=== PATIENT | male | born 1960 | race Caucasian/White ===

== ENCOUNTER 2020-11-21 15:17 | Inpatient (IN) | payer MEDICAID, SELFPAY ==
[~2020-11-21] VITALS: Ht 177.8 cm; Wt 92.1 kg
[2020-11-21 15:20] VITALS: BP_SYST 125
[2020-11-21 16:32] LABS: BASOPHILS % (AUTO) 0.5 % (0.0-2.0); EOSINOPHILS # (AUTO) 0.1 K/uL (0.0-0.4); EOSINOPHILS % (AUTO) 1.5 % (0.0-4.0); HEMATOCRIT 25.2 % (36-54); HEMOGLOBIN 8.5 g/dL (14.0-18.0); LYMPHOCYTES # (AUTO) 1.5 K/uL (1.0-5.5); LYMPHOCYTES % (AUTO) 18.9 % (20.5-51.5); MEAN CORPUSCULAR HEMOGLOBIN 30 pg (27-31); MEAN CORPUSCULAR HGB CONC 34 % (32-36); MEAN CORPUSCULAR VOLUME 88 fL (79.0-98.0); MONOCYTES # (AUTO) 0.4 K/uL (0.0-1.0); MONOCYTES % (AUTO) 4.6 % (1.7-9.3); NEUTROPHILS % (AUTO) 74.5 % (40.0-70.0); PLATELET COUNT (AUTO) 241 K/uL (130-430); RED BLOOD CELL COUNT(AUTO) 2.87 MIL/uL (4.2-6.2); RED CELL DISTRIBUTION WIDTH 15.3 % (9.0-15.0)
[2020-11-21 16:46] LABS: INR 0.9 (0.80-1.20); PROTHROMBIN TIME 10.1 SECS (9.5-12.5)
[2020-11-21 16:48] LABS: CALCIUM 8.5 mg/dL (8.4-11.0); CREATININE 1.82 mg/dL (0.55-1.30); POTASSIUM 3.5 mmol/L (3.5-5.1)
[2020-11-21 16:54] LABS: ALBUMIN 2.6 g/dL (3.4-4.8); TOTAL BILIRUBIN 0.2 mg/dL (0.0-1.0)
[2020-11-21] MEDS ORDERED: LORazepam 1 MG TABLET PO ONE (20:00)
[2020-11-21] MEDS ORDERED: IOHEXOL 350 mgI/mL, 150 ML INFUS..BTL IV ONE (20:02)
[2020-11-21] MEDS ORDERED: PIPERACILLIN/TAZOBACTAM 2.25 GM in NS 50 ML IV ONE (21:45)
[2020-11-21] MEDS ORDERED: VANCOMYCIN HCL 1,000 MG in NS 250 ML IV ONE (21:45)
[2020-11-21] MEDS ORDERED: VANCOMYCIN HCL 1000 MG/VIAL IV ONE (22:00)
[2020-11-21] MEDS ORDERED: PIPERACILLIN/TAZOBACTAM 2.25 GM VIAL IV ONE (22:00)
[2020-11-21] MEDS ORDERED: HYDR-3698 PO (23:26)
[2020-11-21] MEDS ORDERED: BUDE0.5A INH (23:26)
[2020-11-21] MEDS ORDERED: MIRT-114 PO (23:26)
[2020-11-21] MEDS ORDERED: INSU100V9 SQ (23:26)
[2020-11-21] MEDS ORDERED: CILO100T PO (23:26)
[2020-11-21] MEDS ORDERED: TAMS-11 PO (23:26)
[2020-11-21] MEDS ORDERED: LACT1CAP61 PO (23:26)
[2020-11-21] MEDS ORDERED: LIP20 PO (23:26)
[2020-11-21] MEDS ORDERED: NITSL SL (23:26)
[2020-11-21] MEDS ORDERED: TRAM50TA2 PO (23:26)
[2020-11-21] MEDS ORDERED: METO25TA6 PO (23:26)
[2020-11-21] MEDS ORDERED: LEVA15HF5 INH (23:26)
[2020-11-21] MEDS ORDERED: ZOLP5TAB2 PO (23:26)
[2020-11-21] MEDS ORDERED: PRO40 PO (23:26)
[2020-11-22 00:18] VITALS: BP_SYST 134
[2020-11-22 01:14] VITALS: BP_SYST 135
[2020-11-22] MEDS: traMADol HCL HCL 50 MG TABLET (ULTRAM) PO PRN ×2 (03:21→12:12)
[2020-11-22] MEDS ORDERED: PIPERACILLIN/TAZOBACTAM 2.25 GM VIAL IV ONE (04:03)
[2020-11-22] MEDS: PIPERACILLIN/TAZOBACTAM 2.25 GM in NS 50 ML IV SCH ×5 (05:57→16:45)
[2020-11-22 08:39] VITALS: BP_SYST 119
[2020-11-22] MEDS ORDERED: CILOSTAZOL 50 MG TABLET (PLETAL) PO ONE (11:30)
[2020-11-22] MEDS ORDERED: METOPROLOL TARTRATE 25 MG TABLET PO ONE (11:30)
[2020-11-22] MEDS ORDERED: TAMSULOSIN HCL 0.4 MG CAP PO ONE (11:30)
[2020-11-22] MEDS ORDERED: LACTOBACILLUS ACIDOPHILUS PO ONE (11:30)
[2020-11-22] MEDS ORDERED: traMADol HCL HCL 50 MG TABLET (ULTRAM) PO PRN (11:30)
[2020-11-22] MEDS ORDERED: BUDESONIDE 0.5 MG/2 ML AMPUL.NEB INH ONE (11:30)
[2020-11-22] MEDS ORDERED: NITROGLYCERIN 0.4 MG TAB.SUBL SL PRN (11:30)
[2020-11-22] MEDS ORDERED: PANTOPRAZOLE SODIUM 40 MG TAB PO ONE (11:30)
[2020-11-22] MEDS ORDERED: LACTOBACILLUS RHAMNOSUS GG 1 CAP CAPSULE PO ONE (12:00)
[2020-11-22] MEDS: INSULIN REGULAR, HUMAN 100 UNITS/ML, 10 ML VIAL (humuLIN R) SUBCUT PRN ×3 (12:14→21:17)
[2020-11-22 16:09] VITALS: BP_SYST 133
[2020-11-22] MEDS ORDERED: HEPARIN SODIUM,PORCINE 5,000 UNITS/ML VIAL ONE (17:16)
[2020-11-22 20:20] VITALS: BP_SYST 138
[2020-11-22] MEDS: BUDESONIDE 0.5 MG/2 ML AMPUL.NEB INH SCH (20:57)
[2020-11-22] MEDS: ZOLPIDEM TARTRATE 5 MG TABLET PO PRN (21:11)
[2020-11-22] MEDS: ATORVASTATIN 20 MG TABLET PO SCH (21:12)
[2020-11-22] MEDS: MIRTAZAPINE 15 MG TABLET PO SCH (21:12)
[2020-11-22] MEDS: CILOSTAZOL 50 MG TABLET (PLETAL) PO SCH (21:12)
[2020-11-22] MEDS: METOPROLOL TARTRATE 25 MG TABLET PO SCH (21:14)
[2020-11-22] MEDS: INSULIN GLARGINE 100 UNITS/ML 10 ML VIAL SUBCUT SCH (21:16)
[2020-11-23] MEDS: PIPERACILLIN/TAZOBACTAM 2.25 GM in NS 50 ML IV SCH ×4 (00:48→17:01)
[2020-11-23 02:10] VITALS: BP_SYST 102
[2020-11-23] MEDS: BUDESONIDE 0.5 MG/2 ML AMPUL.NEB INH SCH ×2 (07:42→19:10)
[2020-11-23 07:52] LABS: BASOPHILS % (AUTO) 0.4 % (0.0-2.0); EOSINOPHILS # (AUTO) 0.3 K/uL (0.0-0.4); HEMATOCRIT 27.5 % (36-54); LYMPHOCYTES % (AUTO) 35.1 % (20.5-51.5); MEAN CORPUSCULAR HEMOGLOBIN 29 pg (27-31); MEAN CORPUSCULAR HGB CONC 33 % (32-36); MEAN CORPUSCULAR VOLUME 89 fL (79.0-98.0); MONOCYTES # (AUTO) 0.5 K/uL (0.0-1.0); MONOCYTES % (AUTO) 5.6 % (1.7-9.3); NEUTROPHILS # (AUTO) 4.8 K/uL (1.8-7.7); NEUTROPHILS % (AUTO) 55.9 % (40.0-70.0); PLATELET COUNT (AUTO) 202 K/uL (130-430); RED BLOOD CELL COUNT(AUTO) 3.08 MIL/uL (4.2-6.2); RED CELL DISTRIBUTION WIDTH 15.1 % (9.0-15.0); WHITE BLOOD COUNT (AUTO) 8.6 K/uL (4.8-10.8)
[2020-11-23 07:56] VITALS: BP_SYST 113
[2020-11-23 08:17] LABS: ALBUMIN 2.6 g/dL (3.4-4.8); CALCIUM 8.6 mg/dL (8.4-11.0); CREATININE 2.8 mg/dL (0.55-1.30); POTASSIUM 4.4 mmol/L (3.5-5.1); TOTAL BILIRUBIN 0.1 mg/dL (0.0-1.0)
[2020-11-23] MEDS: TAMSULOSIN HCL 0.4 MG CAP PO SCH (08:49)
[2020-11-23] MEDS: PANTOPRAZOLE SODIUM 40 MG TAB PO SCH (08:49)
[2020-11-23] MEDS: METOPROLOL TARTRATE 25 MG TABLET PO SCH ×2 (08:49→20:24)
[2020-11-23] MEDS: CILOSTAZOL 50 MG TABLET (PLETAL) PO SCH ×2 (08:49→20:23)
[2020-11-23] MEDS: LACTOBACILLUS RHAMNOSUS GG 1 CAP CAPSULE PO SCH (08:50)
[2020-11-23] MEDS: INSULIN REGULAR, HUMAN 100 UNITS/ML, 10 ML VIAL (humuLIN R) SUBCUT PRN ×3 (11:31→20:23)
[2020-11-23 12:00] VITALS: BP_SYST 122
[2020-11-23 16:00] VITALS: BP_SYST 117
[2020-11-23 20:15] VITALS: BP_SYST 117
[2020-11-23] MEDS: INSULIN GLARGINE 100 UNITS/ML 10 ML VIAL SUBCUT SCH (20:22)
[2020-11-23] MEDS: MIRTAZAPINE 15 MG TABLET PO SCH (20:23)
[2020-11-23] MEDS: ATORVASTATIN 20 MG TABLET PO SCH (20:23)
[2020-11-23] MEDS: traMADol HCL HCL 50 MG TABLET (ULTRAM) PO PRN (20:24)
[2020-11-23] MEDS: ZOLPIDEM TARTRATE 5 MG TABLET PO PRN (21:33)
[2020-11-24] MEDS: PIPERACILLIN/TAZOBACTAM 2.25 GM in NS 50 ML IV SCH ×4 (00:56→17:15)
[2020-11-24 01:08] VITALS: BP_SYST 139
[2020-11-24 08:00] VITALS: BP_SYST 136
[2020-11-24] MEDS: BUDESONIDE 0.5 MG/2 ML AMPUL.NEB INH SCH ×2 (08:10→19:00)
[2020-11-24 08:29] LABS: BASOPHILS % (AUTO) 0.5 % (0.0-2.0); EOSINOPHILS # (AUTO) 0.3 K/uL (0.0-0.4); HEMATOCRIT 27.2 % (36-54); HEMOGLOBIN 8.8 g/dL (14.0-18.0); LYMPHOCYTES % (AUTO) 33.8 % (20.5-51.5); MEAN CORPUSCULAR HEMOGLOBIN 29 pg (27-31); MEAN CORPUSCULAR HGB CONC 32 % (32-36); MEAN CORPUSCULAR VOLUME 89 fL (79.0-98.0); MONOCYTES # (AUTO) 0.5 K/uL (0.0-1.0); MONOCYTES % (AUTO) 5.1 % (1.7-9.3); NEUTROPHILS # (AUTO) 5.2 K/uL (1.8-7.7); NEUTROPHILS % (AUTO) 57.6 % (40.0-70.0); PLATELET COUNT (AUTO) 221 K/uL (130-430); RED BLOOD CELL COUNT(AUTO) 3.05 MIL/uL (4.2-6.2); RED CELL DISTRIBUTION WIDTH 14.9 % (9.0-15.0)
[2020-11-24 08:45] LABS: CALCIUM 8.5 mg/dL (8.4-11.0); CREATININE 4.2 mg/dL (0.55-1.30); POTASSIUM 4.4 mmol/L (3.5-5.1)
[2020-11-24] MEDS: LACTOBACILLUS RHAMNOSUS GG 1 CAP CAPSULE PO SCH (09:01)
[2020-11-24] MEDS: TAMSULOSIN HCL 0.4 MG CAP PO SCH (09:02)
[2020-11-24] MEDS: CILOSTAZOL 50 MG TABLET (PLETAL) PO SCH ×2 (09:03→20:52)
[2020-11-24] MEDS: METOPROLOL TARTRATE 25 MG TABLET PO SCH ×2 (09:04→20:52)
[2020-11-24] MEDS: PANTOPRAZOLE SODIUM 40 MG TAB PO SCH (09:04)
[2020-11-24] MEDS: INSULIN REGULAR, HUMAN 100 UNITS/ML, 10 ML VIAL (humuLIN R) SUBCUT PRN ×3 (11:58→20:58)
[2020-11-24 12:20] VITALS: BP_SYST 127
[2020-11-24] MEDS: LevALBUTEROL HCL 1.25 MG/0.5 ML *CONC.* VIAL.NEB (XOPENEX CONC.) INH PRN (14:39)
[2020-11-24 16:09] VITALS: BP_SYST 122
[2020-11-24] MEDS: LIPASE/PROTEASE/AMYLASE 1 CAP PO SCH (17:14)
[2020-11-24 20:00] VITALS: BP_SYST 142
[2020-11-24] MEDS: MIRTAZAPINE 15 MG TABLET PO SCH (20:52)
[2020-11-24] MEDS: ATORVASTATIN 20 MG TABLET PO SCH (20:52)
[2020-11-24] MEDS: INSULIN GLARGINE 100 UNITS/ML 10 ML VIAL SUBCUT SCH (20:55)
[2020-11-24] MEDS ORDERED: cefTRIAXone 1 GM VIAL ONE (21:40)
[2020-11-24] MEDS ORDERED: VANCOMYCIN HCL Non-Formulary 125 MG CAPSULE PO SCH (22:00)
[2020-11-24] MEDS: VANCOMYCIN HCL ORAL SOLUTION 250 MG/5 ML, 80 ML PO SCH (22:00)
[2020-11-24] MEDS: cefTRIAXone 1 GM in D5W 50 ML IV SCH (22:26)
[2020-11-24] MEDS ORDERED: HEPARIN SODIUM,PORCINE 5,000 UNITS/ML VIAL IVP ONE (23:00)
[2020-11-24] MEDS: traMADol HCL HCL 50 MG TABLET (ULTRAM) PO PRN (23:20)
[2020-11-25] VITALS: BP_SYST 133
[2020-11-25] MEDS: VANCOMYCIN HCL ORAL SOLUTION 250 MG/5 ML, 80 ML PO SCH ×4 (06:00→23:40)
[2020-11-25] MEDS: traMADol HCL HCL 50 MG TABLET (ULTRAM) PO PRN (06:33)
[2020-11-25] MEDS: INSULIN REGULAR, HUMAN 100 UNITS/ML, 10 ML VIAL (humuLIN R) SUBCUT PRN ×3 (06:33→17:25)
[2020-11-25] MEDS: BUDESONIDE 0.5 MG/2 ML AMPUL.NEB INH SCH ×2 (07:45→19:00)
[2020-11-25 08:00] VITALS: BP_SYST 133; BP_SYST 153
[2020-11-25] MEDS: TAMSULOSIN HCL 0.4 MG CAP PO SCH (09:11)
[2020-11-25] MEDS: LACTOBACILLUS RHAMNOSUS GG 1 CAP CAPSULE PO SCH (09:11)
[2020-11-25] MEDS: PANTOPRAZOLE SODIUM 40 MG TAB PO SCH (09:11)
[2020-11-25] MEDS: CILOSTAZOL 50 MG TABLET (PLETAL) PO SCH ×2 (09:11→21:05)
[2020-11-25] MEDS: LIPASE/PROTEASE/AMYLASE 1 CAP PO SCH ×3 (09:11→17:30)
[2020-11-25] MEDS: METOPROLOL TARTRATE 25 MG TABLET PO SCH ×2 (09:16→21:05)
[2020-11-25 11:31] VITALS: BP_SYST 116
[2020-11-25] MEDS ORDERED: FAMOTIDINE 20 MG TABLET PO ONE (12:15)
[2020-11-25 15:30] VITALS: BP_SYST 126
[2020-11-25] MEDS ORDERED: EPOETIN ALFA 4,000 UNITS/ML VIAL SUBCUT SCH (17:00)
[2020-11-25] MEDS: cefTRIAXone 1 GM in D5W 50 ML IV SCH (18:59)
[2020-11-25] MEDS: INSULIN GLARGINE 100 UNITS/ML 10 ML VIAL SUBCUT SCH (20:57)
[2020-11-25] MEDS: ATORVASTATIN 20 MG TABLET PO SCH (21:05)
[2020-11-25] MEDS: MIRTAZAPINE 15 MG TABLET PO SCH (21:05)
[2020-11-26 01:03] VITALS: BP_SYST 118
[2020-11-26] MEDS: traMADol HCL HCL 50 MG TABLET (ULTRAM) PO PRN ×3 (01:09→23:06)
[2020-11-26] MEDS: INSULIN REGULAR, HUMAN 100 UNITS/ML, 10 ML VIAL (humuLIN R) SUBCUT PRN ×4 (01:16→21:30)
[2020-11-26] MEDS: VANCOMYCIN HCL ORAL SOLUTION 250 MG/5 ML, 80 ML PO SCH ×3 (05:18→23:07)
[2020-11-26] MEDS: BUDESONIDE 0.5 MG/2 ML AMPUL.NEB INH SCH ×2 (07:54→19:57)
[2020-11-26 08:00] VITALS: BP_SYST 120
[2020-11-26] MEDS: LIPASE/PROTEASE/AMYLASE 1 CAP PO SCH ×3 (08:55→17:43)
[2020-11-26] MEDS: FAMOTIDINE 20 MG TABLET PO SCH (08:55)
[2020-11-26] MEDS: LACTOBACILLUS RHAMNOSUS GG 1 CAP CAPSULE PO SCH (08:56)
[2020-11-26] MEDS: CILOSTAZOL 50 MG TABLET (PLETAL) PO SCH ×2 (08:56→21:17)
[2020-11-26] MEDS: PANTOPRAZOLE SODIUM 40 MG TAB PO SCH (08:56)
[2020-11-26] MEDS: TAMSULOSIN HCL 0.4 MG CAP PO SCH (08:56)
[2020-11-26] MEDS: METOPROLOL TARTRATE 25 MG TABLET PO SCH ×2 (08:58→21:17)
[2020-11-26 11:34] VITALS: BP_SYST 117
[2020-11-26 15:40] VITALS: BP_SYST 117
[2020-11-26] MEDS ORDERED: HEPARIN SODIUM,PORCINE 5,000 UNITS/ML VIAL MC PRN (16:15)
[2020-11-26] MEDS ORDERED: EPOETIN ALFA 10,000 UNITS/ML VIAL SUBCUT SCH (17:00)
[2020-11-26] MEDS: EPOETIN ALFA 10,000 UNITS/ML VIAL SUBCUT SCH (17:43)
[2020-11-26] MEDS: cefTRIAXone 1 GM in D5W 50 ML IV SCH (18:10)
[2020-11-26] MEDS: ATORVASTATIN 20 MG TABLET PO SCH (21:17)
[2020-11-26] MEDS: MIRTAZAPINE 15 MG TABLET PO SCH (21:17)
[2020-11-26] MEDS: INSULIN GLARGINE 100 UNITS/ML 10 ML VIAL SUBCUT SCH (21:28)
[2020-11-27] VITALS: BP_SYST 117
[2020-11-27] MEDS: traMADol HCL HCL 50 MG TABLET (ULTRAM) PO PRN ×2 (03:10→17:29)
[2020-11-27] MEDS: VANCOMYCIN HCL ORAL SOLUTION 250 MG/5 ML, 80 ML PO SCH ×3 (05:15→22:01)
[2020-11-27 06:48] LABS: BASOPHILS % (AUTO) 0.6 % (0.0-2.0); EOSINOPHILS # (AUTO) 0.3 K/uL (0.0-0.4); EOSINOPHILS % (AUTO) 3.4 % (0.0-4.0); HEMATOCRIT 28.3 % (36-54); HEMOGLOBIN 9.4 g/dL (14.0-18.0); LYMPHOCYTES % (AUTO) 36.2 % (20.5-51.5); MEAN CORPUSCULAR HEMOGLOBIN 29 pg (27-31); MEAN CORPUSCULAR HGB CONC 33 % (32-36); MEAN CORPUSCULAR VOLUME 88 fL (79.0-98.0); MONOCYTES # (AUTO) 0.5 K/uL (0.0-1.0); MONOCYTES % (AUTO) 5.5 % (1.7-9.3); NEUTROPHILS # (AUTO) 4.6 K/uL (1.8-7.7); NEUTROPHILS % (AUTO) 54.3 % (40.0-70.0); PLATELET COUNT (AUTO) 210 K/uL (130-430); RED BLOOD CELL COUNT(AUTO) 3.24 MIL/uL (4.2-6.2); RED CELL DISTRIBUTION WIDTH 14.9 % (9.0-15.0); WHITE BLOOD COUNT (AUTO) 8.4 K/uL (4.8-10.8)
[2020-11-27 07:15] LABS: ALBUMIN 2.7 g/dL (3.4-4.8); CALCIUM 8.5 mg/dL (8.4-11.0); CREATININE 3.23 mg/dL (0.55-1.30); PHOSPHORUS 4.6 mg/dL (2.7-4.5); POTASSIUM 4.7 mmol/L (3.5-5.1); TOTAL BILIRUBIN 0.1 mg/dL (0.0-1.0)
[2020-11-27 08:05] LABS: TOTAL IRON BIND. CAPACITY 211 ug/dL (250-450)
[2020-11-27] MEDS: BUDESONIDE 0.5 MG/2 ML AMPUL.NEB INH SCH ×2 (08:18→23:43)
[2020-11-27 09:09] VITALS: BP_SYST 126
[2020-11-27] MEDS: LACTOBACILLUS RHAMNOSUS GG 1 CAP CAPSULE PO SCH (09:12)
[2020-11-27] MEDS: PANTOPRAZOLE SODIUM 40 MG TAB PO SCH (09:12)
[2020-11-27] MEDS: TAMSULOSIN HCL 0.4 MG CAP PO SCH (09:13)
[2020-11-27] MEDS: METOPROLOL TARTRATE 25 MG TABLET PO SCH ×2 (09:13→22:02)
[2020-11-27] MEDS: FAMOTIDINE 20 MG TABLET PO SCH (09:14)
[2020-11-27] MEDS: CILOSTAZOL 50 MG TABLET (PLETAL) PO SCH ×2 (09:14→22:02)
[2020-11-27] MEDS: LIPASE/PROTEASE/AMYLASE 1 CAP PO SCH ×3 (09:15→17:38)
[2020-11-27 11:32] VITALS: BP_SYST 120
[2020-11-27] MEDS: INSULIN REGULAR, HUMAN 100 UNITS/ML, 10 ML VIAL (humuLIN R) SUBCUT PRN ×3 (12:00→23:37)
[2020-11-27 15:39] VITALS: BP_SYST 131
[2020-11-27] MEDS: LevALBUTEROL HCL 1.25 MG/0.5 ML *CONC.* VIAL.NEB (XOPENEX CONC.) INH PRN (17:01)
[2020-11-27] MEDS: cefTRIAXone 1 GM in D5W 50 ML IV SCH (17:39)
[2020-11-27 20:00] VITALS: BP_SYST 123
[2020-11-27] MEDS: ATORVASTATIN 20 MG TABLET PO SCH (22:02)
[2020-11-27] MEDS: MIRTAZAPINE 15 MG TABLET PO SCH (22:02)
[2020-11-27] MEDS: INSULIN GLARGINE 100 UNITS/ML 10 ML VIAL SUBCUT SCH (22:49)
[2020-11-28] VITALS (7 sets, daily range): BP systolic 122–130
[2020-11-28] MEDS: traMADol HCL HCL 50 MG TABLET (ULTRAM) PO PRN ×3 (01:23→21:39)
[2020-11-28] MEDS: VANCOMYCIN HCL ORAL SOLUTION 250 MG/5 ML, 80 ML PO SCH ×3 (05:34→21:51)
[2020-11-28 06:24] LABS: CALCIUM 8.5 mg/dL (8.4-11.0); CREATININE 4.21 mg/dL (0.55-1.30); POTASSIUM 5.1 mmol/L (3.5-5.1)
[2020-11-28 06:27] LABS: BASOPHILS # (AUTO) 0.1 K/uL (0.0-0.2); BASOPHILS % (AUTO) 0.6 % (0.0-2.0); EOSINOPHILS # (AUTO) 0.3 K/uL (0.0-0.4); EOSINOPHILS % (AUTO) 3.1 % (0.0-4.0); HEMATOCRIT 25.4 % (36-54); HEMOGLOBIN 8.4 g/dL (14.0-18.0); LYMPHOCYTES % (AUTO) 31.2 % (20.5-51.5); MEAN CORPUSCULAR HEMOGLOBIN 29 pg (27-31); MEAN CORPUSCULAR HGB CONC 33 % (32-36); MEAN CORPUSCULAR VOLUME 90 fL (79.0-98.0); MONOCYTES # (AUTO) 0.6 K/uL (0.0-1.0); MONOCYTES % (AUTO) 6.6 % (1.7-9.3); NEUTROPHILS # (AUTO) 5.6 K/uL (1.8-7.7); NEUTROPHILS % (AUTO) 58.5 % (40.0-70.0); PLATELET COUNT (AUTO) 227 K/uL (130-430); RED BLOOD CELL COUNT(AUTO) 2.84 MIL/uL (4.2-6.2); RED CELL DISTRIBUTION WIDTH 14.7 % (9.0-15.0); WHITE BLOOD COUNT (AUTO) 9.6 K/uL (4.8-10.8)
[2020-11-28] MEDS: INSULIN REGULAR, HUMAN 100 UNITS/ML, 10 ML VIAL (humuLIN R) SUBCUT PRN ×4 (06:33→21:47)
[2020-11-28] MEDS: BUDESONIDE 0.5 MG/2 ML AMPUL.NEB INH SCH ×2 (07:58→20:51)
[2020-11-28] MEDS: FAMOTIDINE 20 MG TABLET PO SCH (08:57)
[2020-11-28] MEDS: PANTOPRAZOLE SODIUM 40 MG TAB PO SCH (08:57)
[2020-11-28] MEDS: LIPASE/PROTEASE/AMYLASE 1 CAP PO SCH ×3 (08:57→16:57)
[2020-11-28] MEDS: LACTOBACILLUS RHAMNOSUS GG 1 CAP CAPSULE PO SCH (08:57)
[2020-11-28 08:58] LABS: PHOSPHORUS 6.7 mg/dL (2.7-4.5)
[2020-11-28] MEDS: TAMSULOSIN HCL 0.4 MG CAP PO SCH (08:58)
[2020-11-28] MEDS: METOPROLOL TARTRATE 25 MG TABLET PO SCH ×2 (08:58→21:44)
[2020-11-28] MEDS: CILOSTAZOL 50 MG TABLET (PLETAL) PO SCH ×2 (08:58→21:40)
[2020-11-28] MEDS: SOD FERRIC GLUC COMPLEX/SUC 125 MG in NS 100 ML IV SCH (15:33)
[2020-11-28] MEDS: cefTRIAXone 1 GM in D5W 50 ML IV SCH (16:53)
[2020-11-28] MEDS: EPOETIN ALFA 10,000 UNITS/ML VIAL SUBCUT SCH (16:54)
[2020-11-28] MEDS: MIRTAZAPINE 15 MG TABLET PO SCH (21:39)
[2020-11-28] MEDS: ATORVASTATIN 20 MG TABLET PO SCH (21:40)
[2020-11-28] MEDS: INSULIN GLARGINE 100 UNITS/ML 10 ML VIAL SUBCUT SCH (21:47)
[2020-11-29] VITALS: BP_SYST 120
[2020-11-29] MEDS: ZOLPIDEM TARTRATE 5 MG TABLET PO PRN (01:25)
[2020-11-29] MEDS: traMADol HCL HCL 50 MG TABLET (ULTRAM) PO PRN (03:26)
[2020-11-29] MEDS: VANCOMYCIN HCL ORAL SOLUTION 250 MG/5 ML, 80 ML PO SCH ×3 (06:29→21:04)
[2020-11-29 07:00] VITALS: BP_SYST 115
[2020-11-29] MEDS: BUDESONIDE 0.5 MG/2 ML AMPUL.NEB INH SCH ×2 (07:17→20:22)
[2020-11-29 08:49] LABS: BASOPHILS % (AUTO) 0.6 % (0.0-2.0); EOSINOPHILS # (AUTO) 0.3 K/uL (0.0-0.4); HEMATOCRIT 27.6 % (36-54); HEMOGLOBIN 9.1 g/dL (14.0-18.0); LYMPHOCYTES # (AUTO) 2.5 K/uL (1.0-5.5); LYMPHOCYTES % (AUTO) 28.8 % (20.5-51.5); MEAN CORPUSCULAR HEMOGLOBIN 29 pg (27-31); MEAN CORPUSCULAR HGB CONC 33 % (32-36); MEAN CORPUSCULAR VOLUME 88 fL (79.0-98.0); MONOCYTES # (AUTO) 0.6 K/uL (0.0-1.0); MONOCYTES % (AUTO) 7.2 % (1.7-9.3); NEUTROPHILS # (AUTO) 5.3 K/uL (1.8-7.7); NEUTROPHILS % (AUTO) 60.4 % (40.0-70.0); PLATELET COUNT (AUTO) 262 K/uL (130-430); RED BLOOD CELL COUNT(AUTO) 3.14 MIL/uL (4.2-6.2); RED CELL DISTRIBUTION WIDTH 14.7 % (9.0-15.0); WHITE BLOOD COUNT (AUTO) 8.8 K/uL (4.8-10.8)
[2020-11-29] MEDS: METOPROLOL TARTRATE 25 MG TABLET PO SCH ×2 (09:00→21:02)
[2020-11-29 09:39] LABS: CALCIUM 8.8 mg/dL (8.4-11.0); CREATININE 3.07 mg/dL (0.55-1.30); PHOSPHORUS 3.9 mg/dL (2.7-4.5); POTASSIUM 4.7 mmol/L (3.5-5.1)
[2020-11-29] MEDS: LACTOBACILLUS RHAMNOSUS GG 1 CAP CAPSULE PO SCH (10:22)
[2020-11-29] MEDS: TAMSULOSIN HCL 0.4 MG CAP PO SCH (10:22)
[2020-11-29] MEDS: LIPASE/PROTEASE/AMYLASE 1 CAP PO SCH ×3 (10:22→18:46)
[2020-11-29] MEDS: CILOSTAZOL 50 MG TABLET (PLETAL) PO SCH ×2 (10:24→21:01)
[2020-11-29] MEDS: PANTOPRAZOLE SODIUM 40 MG TAB PO SCH (10:24)
[2020-11-29] MEDS: FAMOTIDINE 20 MG TABLET PO SCH (10:24)
[2020-11-29 12:00] VITALS: BP_SYST 99
[2020-11-29] MEDS ORDERED: ALBUMIN HUMAN 25% 100 ML IV ONE (12:45)
[2020-11-29] MEDS ORDERED: HEPARIN SODIUM,PORCINE 5,000 UNITS/ML VIAL MC ONE (12:45)
[2020-11-29] MEDS: INSULIN REGULAR, HUMAN 100 UNITS/ML, 10 ML VIAL (humuLIN R) SUBCUT PRN ×3 (12:46→21:18)
[2020-11-29] MEDS: SOD FERRIC GLUC COMPLEX/SUC 125 MG in NS 100 ML IV SCH (15:13)
[2020-11-29 16:00] VITALS: BP_SYST 124
[2020-11-29 21:00] VITALS: BP_SYST 114
[2020-11-29] MEDS ORDERED: MEGESTROL ACETATE 400 MG/10 ML UDC PO SCH (21:00)
[2020-11-29] MEDS: ATORVASTATIN 20 MG TABLET PO SCH (21:01)
[2020-11-29] MEDS: MIRTAZAPINE 15 MG TABLET PO SCH (21:05)
[2020-11-29] MEDS: INSULIN GLARGINE 100 UNITS/ML 10 ML VIAL SUBCUT SCH (21:09)
[2020-11-30] MEDS: traMADol HCL HCL 50 MG TABLET (ULTRAM) PO PRN ×2 (01:20→21:25)
[2020-11-30 01:30] VITALS: BP_SYST 123
[2020-11-30] MEDS: VANCOMYCIN HCL ORAL SOLUTION 250 MG/5 ML, 80 ML PO SCH ×3 (06:19→21:18)
[2020-11-30] MEDS: INSULIN REGULAR, HUMAN 100 UNITS/ML, 10 ML VIAL (humuLIN R) SUBCUT PRN ×4 (06:28→21:39)
[2020-11-30] MEDS: BUDESONIDE 0.5 MG/2 ML AMPUL.NEB INH SCH ×2 (07:58→19:15)
[2020-11-30 08:31] VITALS: BP_SYST 104
[2020-11-30] MEDS: FAMOTIDINE 20 MG TABLET PO SCH (09:25)
[2020-11-30] MEDS: TAMSULOSIN HCL 0.4 MG CAP PO SCH (09:25)
[2020-11-30] MEDS: CILOSTAZOL 50 MG TABLET (PLETAL) PO SCH ×2 (09:25→21:15)
[2020-11-30] MEDS: PANTOPRAZOLE SODIUM 40 MG TAB PO SCH (09:25)
[2020-11-30] MEDS: LACTOBACILLUS RHAMNOSUS GG 1 CAP CAPSULE PO SCH (09:25)
[2020-11-30] MEDS: METOPROLOL TARTRATE 25 MG TABLET PO SCH ×2 (09:26→21:16)
[2020-11-30] MEDS: LIPASE/PROTEASE/AMYLASE 1 CAP PO SCH ×3 (09:26→17:38)
[2020-11-30 12:33] VITALS: BP_SYST 122
[2020-11-30 16:43] VITALS: BP_SYST 116
[2020-11-30] MEDS: SOD FERRIC GLUC COMPLEX/SUC 125 MG in NS 100 ML IV SCH (17:39)
[2020-11-30 20:15] VITALS: BP_SYST 130
[2020-11-30] MEDS ORDERED: GABAPENTIN 300 MG CAPSULE PO SCH (21:00)
[2020-11-30] MEDS: MIRTAZAPINE 15 MG TABLET PO SCH (21:15)
[2020-11-30] MEDS: ATORVASTATIN 20 MG TABLET PO SCH (21:15)
[2020-11-30] MEDS: INSULIN GLARGINE 100 UNITS/ML 10 ML VIAL SUBCUT SCH (21:38)
[2020-12-01 00:21] VITALS: BP_SYST 147
[2020-12-01] MEDS: ZOLPIDEM TARTRATE 5 MG TABLET PO PRN (00:43)
[2020-12-01] MEDS: VANCOMYCIN HCL ORAL SOLUTION 250 MG/5 ML, 80 ML PO SCH ×2 (06:23→13:16)
[2020-12-01 08:00] VITALS: BP_SYST 158
[2020-12-01] MEDS: BUDESONIDE 0.5 MG/2 ML AMPUL.NEB INH SCH ×2 (08:08→19:31)
[2020-12-01] MEDS: FAMOTIDINE 20 MG TABLET PO SCH (08:10)
[2020-12-01] MEDS: TAMSULOSIN HCL 0.4 MG CAP PO SCH (08:10)
[2020-12-01] MEDS: CILOSTAZOL 50 MG TABLET (PLETAL) PO SCH (08:10)
[2020-12-01] MEDS: LIPASE/PROTEASE/AMYLASE 1 CAP PO SCH ×3 (08:10→17:06)
[2020-12-01] MEDS: METOPROLOL TARTRATE 25 MG TABLET PO SCH (08:10)
[2020-12-01] MEDS: PANTOPRAZOLE SODIUM 40 MG TAB PO SCH (08:10)
[2020-12-01] MEDS: LACTOBACILLUS RHAMNOSUS GG 1 CAP CAPSULE PO SCH (08:10)
[2020-12-01] MEDS: INSULIN REGULAR, HUMAN 100 UNITS/ML, 10 ML VIAL (humuLIN R) SUBCUT PRN ×2 (11:01→17:08)
[2020-12-01 11:36] VITALS: BP_SYST 142
[2020-12-01] MEDS: SOD FERRIC GLUC COMPLEX/SUC 125 MG in NS 100 ML IV SCH (15:33)
[2020-12-01 15:34] VITALS: BP_SYST 105
[2020-12-01] MEDS: EPOETIN ALFA 10,000 UNITS/ML VIAL SUBCUT SCH (17:06)
[2020-12-01 17:25] VITALS: BP_SYST 120
[2020-12-01] MEDS ORDERED: VANC125C10 PO (17:40)
== END 2020-12-01 19:20 | DRG 139 ==
LOC: SED 15:17 → STU 21:43
PROVIDERS: ADMIT Family Medicine; ATTEND Family Medicine
PROC: 5A1D70Z Performance of Urinary Filtration, Intermittent, Less than 6 Hours Per Day (ICD-10-PCS; principal; 2020-11-22)
PROC: 5A1D70Z Performance of Urinary Filtration, Intermittent, Less than 6 Hours Per Day (ICD-10-PCS; 2020-11-24)
PROC: 5A1D70Z Performance of Urinary Filtration, Intermittent, Less than 6 Hours Per Day (ICD-10-PCS; 2020-11-26)
PROC: 5A1D70Z Performance of Urinary Filtration, Intermittent, Less than 6 Hours Per Day (ICD-10-PCS; 2020-11-29)
DX: J18.9 Pneumonia, unspecified organism (principal); J96.10 Chronic respiratory failure, unspecified whether with hypoxia or hypercapnia; I13.2 Hypertensive heart and chronic kidney disease with heart failure and with stage 5 chronic kidney disease, or end stage renal disease; E46 Unspecified protein-calorie malnutrition; A04.72 Enterocolitis due to Clostridium difficile, not specified as recurrent; E27.8 Other specified disorders of adrenal gland; I27.20 Pulmonary hypertension, unspecified; G82.20 Paraplegia, unspecified; D63.1 Anemia in chronic kidney disease; N18.6 End stage renal disease; E11.22 Type 2 diabetes mellitus with diabetic chronic kidney disease; E11.40 Type 2 diabetes mellitus with diabetic neuropathy, unspecified; E11.51 Type 2 diabetes mellitus with diabetic peripheral angiopathy without gangrene; N40.0 Benign prostatic hyperplasia without lower urinary tract symptoms; I25.10 Atherosclerotic heart disease of native coronary artery without angina pectoris; F41.9 Anxiety disorder, unspecified; F32.9 Major depressive disorder, single episode, unspecified; Z20.822 Contact with and (suspected) exposure to COVID-19; D50.9 Iron deficiency anemia, unspecified; I50.9 Heart failure, unspecified; Z99.2 Dependence on renal dialysis; Z89.511 Acquired absence of right leg below knee; Z68.29 Body mass index [BMI] 29.0-29.9, adult; Z89.422 Acquired absence of other left toe(s); Z88.2 Allergy status to sulfonamides; Z88.8 Allergy status to other drugs, medicaments and biological substances; Z79.899 Other long term (current) drug therapy; Z86.73 Personal history of transient ischemic attack (TIA), and cerebral infarction without residual deficits
CPT/HCPCS: 36415; 71045; 71275; 76376; 80048; 80053; 82728; 82962; 83540; 83550; 83605; 83880; 84100; 84484; 85025; 85379; 85610-TC; 85730-TC; 87040-TC; 87081; 87230-TC; 90935; 90937; 93005; 94640; 94760; 96365; 96366; 96368; 97110-GP; 97530-GP; 99285; G0378; J0696; J0885; J1644; J1815; J2543; J2916; J3370; J7060; J7612; J7626; Q9967